=== PATIENT | female | born 1980 | race Caucasian/White ===

== ENCOUNTER 2023-05-08 06:10 | Day surgery (SDC) | payer MEDICARE, OTHER, SELFPAY ==
[2023-05-08] VITALS (12 sets, daily range): BP systolic 114–181; BP diastolic 49–96; BMI 48.6
[2023-05-08] MEDS: BACTROBAN NASAL 1 GRAM NASAL (06:46)
[2023-05-08] MEDS: PERIDEX 0.12% ORAL RINSE 15 ML PO (06:47)
[2023-05-08 06:53] LABS: Hematocrit 31.6 % (37.0-47.0); Hemoglobin 10.7 g/dL (12.0-16.0); Mean Corp Hgb Conc. 33.9 g/dL (33.0-37.0); Mean Corpuscular Hgb 33.6 pg (27.0-31.0); Mean Corpuscular Volume 99.4 fL (81.0-99.0); Mean Platelet Volume 10.9 fL (7.4-10.4); Platelet Count 202 10^3/uL (130-400); Red Blood Cell Count 3.18 10^6/uL (4.20-5.40); Red Cell Dist. Width 13.3 % (11.5-14.5); White Blood Cell Count 8.4 10^3/uL (4.8-10.8)
--- NOTE | 2023-05-08 07:01 | W.SUR.PREOP ---
Pre-Operative Surgical Note
-
I have examined this patient prior to the performance of the scheduled procedure.
The patient's condition is unchanged from the time of the current History and
Physical and the patient is able to undergo the scheduled procedure.
[2023-05-08 07:08] LABS: INR 1.01; PT 13.5 Sec (11.4-14.6)
[2023-05-08 07:09] LABS: APTT 35.8 Sec (23.4-35.0)
[2023-05-08 07:17] LABS: Blood Urea Nitrogen 59 mg/dl (7-17); Calcium 9.2 mg/dl (8.4-10.2); Carbon Dioxide 26 mmol/L (22-30); Chloride 103 mmol/L (98-107); Estimated Creatinine Clearance 14 ml/min; Glucose 105 mg/dl (70-99); Potassium 4.9 mmol/L (3.5-5.1); Sodium 138 mmol/L (135-145); eGFR 7.36
[2023-05-08 07:27] LABS: HCG, Urine Qualitative Screen Negative
--- NOTE | 2023-05-08 09:20 | OR.RPT ---
Operative Report
Operative Report
PROCEDURE DATE: 05/08/2023
Preoperative diagnosis: End-stage renal disease on hemodialysis
Postoperative diagnosis: Same
Procedure: Left upper extremity radiocephalic arteriovenous fistula creation
Surgeon: Salo
Soda Fountain Manager: Reuben Brionesequired for entirety of procedure including traction/countertraction, following of suture line, assistance with closure.
Complications: None
Anesthesia: General
Indications for procedure:
End-stage renal disease on hemodialysis. Required more permanent access. Currently dialyzed via tunneled dialysis catheter. Risk/benefits/alternatives of fistula creation were discussed with the patient and her family. They understood all wish
to proceed. Note, I discussed with them patient's morbid obesity, therefore habitus of the arms increasing risk of wound complications, possible need for additional procedures including superficialization's. They understood all wish to proceed.
Description of procedure:
Patient was identified brought to the operating room placed on the table in supine position. After the adequate administration of anesthesia and perioperative antibiotics she was prepped and draped in the standard surgical fashion. A standard
preoperative timeout was undertaken and everybody was in agreement the plan. A longitudinal incision was made distal forearm/wrist on the radial aspect. This was carried through skin subcutaneous tissue. Due to her habitus, there is a fair amount
of subcutaneous fatty tissue, and the vein was relatively lateral to the artery (I had ultrasound vein mapped the vein myself prior to making skin incision).
A small lateral subcutaneous flap was raised and the cephalic vein was identified. It was carefully dissected away from surrounding structures take great care to avoid any injury to the structures. Any branches were ligated between silk ties and
then divided. Thus this allowed me to mobilize the vein. It appeared to be a very reasonable vein but was fairly lateral. Once I mobilized the suitable segment, I deepened my dissection in the medial aspect of the incision through the fascial
layer. Identified the radial artery. I carefully dissected away from surrounding structures take great care to avoid any injury to structures. There is a good pulse in the artery, but it was a moderately small artery especially once manipulated,
easily vasospasm. I passed a vessel loop around it proximally and distally. These were double looped but not yet tightened.
Next, I ligated the cephalic vein distally in my field with a silk tie and a clip. I then transected it. I distended the vein under heparinized saline. It distended very well. Based on the obviously reasonable size, I did not feel I needed to
pass dilators as it was clearly over 3 mm once distended. (And based on vein mapping preoperatively and my ultrasound vein mapping assessment, this appeared to be clearly the case). I marked the anterior surface of the vein under distention to
avoid any kinking or twisting.
Next, I gave the patient 4000 units of intravenous heparin. I tightened my double looped Vesseloops on the artery proximally and distally. I made an arteriotomy with a [place] blade and extended using a micro Hernandez scissor. I then spatulated the
cephalic vein and sewed an end to side anastomosis using a running 7-0 Prolene suture. I backbled the artery and then completed and tied down my suture line. Next I released my proximal vessel loop. Finally I released my outflow vessel loop.
Initially the thrill was slightly weak in the fistula but there was an excellent Doppler signal suggesting wide patency. There is an excellent radial pulse at the wrist. I suspected likely slightly weaker thrill due to slightly lower blood
pressure, and in addition radial artery vasospasm. Papaverine was locally given in the field. Flow improved through the fistula. No evidence of thrombotic or occlusive problems noted. The vein was distended nicely. T At this point I was
very satisfied. I irrigated. I achieved and confirmed full hemostasis. We then closed in layers using 3-0 Vicryl deep dermal layer followed by 4 Monocryl subcuticular stitch. Dermabond was applied. The patient tolerated the procedure well.
[2023-05-08] MEDS: ZOFRAN 4 MG IV (09:35)
[2023-05-08] MEDS: DILAUDID 0.25 MG IV ×2 (09:42→09:48)
--- NOTE | 2023-05-08 11:56 | PTCARENOTE ---
Received patient from PACU s/p fistula creation. Site with dermabond intact and no bleeding or hematoma noted. Positive Bruit, but thrill not palpable. MARCIA Levine and Dr. Leong aware. Dr. Leong assessed site prior to patient's discharge, and said
the vein is very deep so it is difficult to feel the thrill at this time. Patient did complain of mild to moderate discomfort at site, but did not take Tylenol or oxycodone due to 'feeling queasy'. Patient described the discomfort as tingling. Left
hand is pink and warm to touch with good capillary refill. Normal movement of fingers and hand.
== END 2023-05-08 12:00 | disposition home or self-care (01) ==
LOC: CATH 06:10
PROVIDERS: Nurse Practitioner; ATTENDING PHYSICIAN Surgery Vascular Surgery; FAMILY PHYSICIAN Family Medicine; OTHER PHYSICIAN Internal Medicine Cardiovascular Disease
DX: I12.0 Hypertensive chronic kidney disease with stage 5 chronic kidney disease or end stage renal disease (principal); N18.6 End stage renal disease; E66.01 Morbid (severe) obesity due to excess calories; Z68.42 Body mass index [BMI] 45.0-49.9, adult; I27.20 Pulmonary hypertension, unspecified
CPT/HCPCS: 36821; 80048; 81025; 85027; 85610; 85730; 86850; 86900; 86901; 93005

== ENCOUNTER → 2023-06-17 13:12 | Outpatient (REF) | payer MEDICARE, OTHER, SELFPAY | LOC: RAD 13:12 | PROVIDERS: ATTENDING PHYSICIAN Physician Assistant; FAMILY PHYSICIAN Family Medicine | DX: I77.0 Arteriovenous fistula, acquired (principal) | CPT/HCPCS: 93990 ==